=== PATIENT | female | born 1985 | race Caucasian/White ===

== ENCOUNTER 2017-11-17 07:30 | Inpatient (IN) | payer OTHER ==
[2017-11-17] MEDS ORDERED: Promethazine HCl 25 MG/ML VIAL IM PRN ×2 (10:25→13:30)
[2017-11-17] MEDS ORDERED: Ondansetron HCl/PF 4 MG/2 ML Vial IVP PRN ×4 (10:25→16:05)
--- NOTE | 2017-11-17 10:28 | PDOC.LDHP ---
Labor and Delivery H&P Chief complaint: scheduled section HPI: PT is a 32yo @ 37 weeks for scheduled RCS. Pt with BP noted 140/150/ 90s the last week, hx of preeclampsia in multiple pregnancies. Short interval , desires RCS. Current gestational age (weeks): 37 Due date: 12/08/17 Dating criteria: last menstrual period, second trimester ultrasound Grav: 6 Para: 5 OB History Details: x 4, CS for breech x 1 Current complications: gestational hypertension Abnormal US findings: No Current medications: pre-cecilia vitamins Previous surgical history: low tranverse CS Allergies/Adverse Reactions: Allergies Allergy/AdvReac Type Severity Reaction Status Date / Time No Known Allergies Allergy Verified 12/13/16 07:36 Social history: tobacco use (6 cig/day) - Physical Exam Vital signs reviewed and normal: yes General: resting, breathing through contractions Lungs: nonlabored breathing Extremeties: trace edema FHT: category 1 - OB Labs Blood type: A RH: positive Antibody Screen: negative HIV: negative RPR: negative HEPSAg: negative 1 hour GCT: unknown (not done) GBS: unknown (collected Mon) Rubella: immune - Assessment L&D Assessment: scheduled repeat section - Plan Plan: admit to L&D, informed consent obtained, anesthesia consult for pain management -: A/P: 32yo prev CS, declines NICOLETTE and short interval w delivery indicated for GHTN. TO OR>
[2017-11-17] MEDS ORDERED: CEFAZOLIN/Water 2 GM/20 ML SYRINGE SLOW IVP SCH (10:30)
[2017-11-17] MEDS ORDERED: Bicitra 30 ML UDCUP PO SCH (10:30)
[2017-11-17 10:37] VITALS: BMI 36.0
[2017-11-17] MEDS: Lactated Ringer's 1,000 ML IV SCH ×2 (11:00→23:53)
[2017-11-17] MEDS ORDERED: Ondansetron HCl/PF 4 MG/2 ML Vial ONE (11:34)
[2017-11-17] MEDS ORDERED: Oxytocin 10 UNITS/ML VIAL ONE ×2 (11:34→11:37)
[2017-11-17] MEDS ORDERED: Morphine PF 1 MG/ML SYR ONE (11:34)
[2017-11-17 11:36] LABS: Hemoglobin 12.4 g/dL (12.0-16.0); Mean Corpuscular HGB CONC 33.6 g/dL (32.0-36.0); Mean Corpuscular Hemoglobin 31.8 pg (27.0-31.0); Mean Corpuscular Volume 94.7 fl (81.0-99.0); Mean Platelet Volume 8.9 fL (7.4-10.4); Platelet Count 200 thou/uL (130-400); RBC Distribution Width 12.5 % (11.5-14.5); White Blood Cell (WBC) Count 10.9 thou/uL (4.8-10.8)
[2017-11-17] MEDS ORDERED: ePHEDrine/0.9% NaCl/PF SYRINGE 50 mg/10 ml ONE ×2 (11:49→12:08)
[2017-11-17] MEDS ORDERED: Ketorolac Tromethamine 30 MG/ML VIAL ONE ×2 (12:08→13:04)
[2017-11-17 12:23] LABS: HBSAg Index 0.13 S/CO (0-0.99); Hep B Surf Ag Non-Reactive S/CO (NonReactive)
[2017-11-17 12:24] LABS: Syphilis Antibody Nonreactive (Nonreactive); Syphilis Antibody Index 0.03 S/CO (<1.00 Non-Reactive)
[2017-11-17] MEDS ORDERED: HYDROmorphone 2 MG/ML VIAL SLOW IVP PRN (13:13)
[2017-11-17] MEDS ORDERED: Ketorolac Tromethamine 30 MG/ML VIAL IVP SCH (13:15)
--- NOTE | 2017-11-17 13:19 | PDOC.OPDEL ---
OB Operative/Delivery Note Delivery Dr/Surgeon: Jorge Assist: Charo Pre-Delivery Diagnosis: scheduled section Procedure/Post Delivery Dx: repeat low transverse CS Weeks gestation: 37 Anesthesia: spinal - Findings A Sex: female Weight: 6 lb 10 oz - 1 min: 8 - 5 min: 9 - Additional Findings/Plan Placenta delivered: manual removal findings: low transverse hysterotomy without extension, normal uterus, normal tubes, normal ovaries Estimated blood loss: 600ml Post delivery plan: routine recovery
[2017-11-17] MEDS ORDERED: Communication Order-Pharmacy FS SCH (13:30)
[2017-11-17] MEDS ORDERED: Promethazine HCl 25 MG SUPP PR PRN (13:30)
[2017-11-17] MEDS ORDERED: Naloxone HCl 0.4 mg/ml Vial IVP PRN ×2 (13:30)
[2017-11-17] MEDS ORDERED: Eucerin (Mineral Oil/Petrolatum,White) 30 gm Jar TOP PRN (13:30)
[2017-11-17] MEDS ORDERED: Naloxone HCl 0.4 mg/ml Vial IV PRN (13:30)
[2017-11-17] MEDS ORDERED: diphenhydrAMINE 50 MG/ML VIAL IVP PRN (13:30)
[2017-11-17] MEDS ORDERED: Meperidine HCl/PF 25 MG/ML VIAL ONE ×2 (13:59→14:26)
[2017-11-17] MEDS: Meperidine HCl/PF 25 MG/ML VIAL SLOW IVP PRN ×2 (14:02→14:33)
[2017-11-17] MEDS ORDERED: Morphine 5 MG/ML SYRINGE SLOW IVP PRN ×3 (15:04→17:34)
[2017-11-17] MEDS ORDERED: diphenhydrAMINE 25 MG CAP PO PRN (16:05)
[2017-11-17] MEDS ORDERED: Bisacodyl 10 MG SUPP PR PRN (16:05)
[2017-11-17] MEDS ORDERED: Adacel (T-DAP) 0.5 ML VIAL IM ONE (16:05)
[2017-11-17] MEDS ORDERED: LR w/ Pitocin 40 units/1000 ML BAG IV SCH (16:05)
[2017-11-17] MEDS ORDERED: Simethicone Chewable 80 MG TAB PO PRN (16:05)
[2017-11-17] MEDS ORDERED: Lanolin Ointment 7 GM TUBE TOP PRN (16:05)
--- NOTE | 2017-11-17 17:38 | OP ---
DATE OF PROCEDURE: 11/17/2017 PREOPERATIVE DIAGNOSES: 1. G6, P5 at 37 weeks. 2. Gestational hypertension. 3. Planned repeat section. POSTOPERATIVE DIAGNOSES: 1. G6, P5 at 37 weeks. 2. Gestational hypertension. 3. Planned repeat section. PROCEDURE PERFORMED: Repeat low transverse section. SURGEON: Manny Patel D.O. COMMISSION SALES ASSOCIATE: Linsday Mancilla M.D. COMPLICATIONS: None. ESTIMATED BLOOD LOSS: 600 mL INTRAOPERATIVE FINDINGS: 1. Low transverse hysterotomy without extension, normal appearing uterus, tubes, and ovaries bilater ally. 2. Vigorous female infant, Apgars 8 and 9, weight 6 pounds 10 ounces, to nursery. 3. Surgical sites hemostatic. PROCEDURE DETAILS: The patient was taken back to the OR with IV fluids running. Once she was in the OR, spinal anesthesia was obtained and the patient was placed in dorsal supine position with a left lateral tilt. Allred catheter was placed using sterile technique. SCDs were placed and initiated on the bilateral lower extremities. The abdomen was then prepped and draped in normal fashion for magalis otilia section. Surgeons were scrubbed in. The anesthesia was tested and found to be adequate. A Pfan nenstiel skin incision was made with the scalpel. Skin incision was carried down through the subcuta neous tissue to the fascia. Once the fascia was reached, it was incised in the midline and extended superior laterally using curved Briggs scissors. Henrique clamps were placed on the superior border of t he fascia, which was then sharply and bluntly dissected off the rectus abdominis muscles in both caud ad and cephalad directions allowing adequate space for delivery of the . The muscles were blun tly in the midline. The peritoneum was bluntly entered and stretched laterally. An Jeff O retractor was placed into the peritoneal cavity for retraction, visualization and protection of th e wound. A bladder flap was created using Metzenbaum scissors and the bladder was directed away from the planned hysterotomy site. Hysterotomy was then made with the scalpel. The uterus was bluntly e ntered and stretched with the Venegas maneuver. The amniotic sac was intact and ruptured with an Allis clamp with clear fluid noted. It was then delivered through the hysterotomy in the vertex position f ollowed by the body. Nose and mouth were suctioned. The cord was doubly clamped and cut. The infan t was handed off to special care nurses in attendance. Cord blood was collected. The placenta was d elivered. The uterus was exteriorized, massaged to firm, and cleared of clot and debris. Uterus was then returned to the abdominal cavity. Hysterotomy was closed in 2 layers with a second imbricating layer using Monocryl suture in a running lock fashion with hemostasis of the uterus noted. The hyst erotomy and pericolic gutters were irrigated and suctioned dry. The hysterotomy was inspected again and noted to be hemostatic. The Jeff O retractor was removed from the abdominal cavity. The fasci a and rectus muscles were inspected with no areas of bleeding noted. The fascia was reapproximated w ith PDS suture from corner to corner and tied separately in the midline. Subcutaneous tissue was the n irrigated. Subcutaneous tissue was reapproximated with plain gut suture. The skin was closed with 4-0 Monocryl and dressed with Dermabond dressing. The uterus was massaged again and noted to be fir m. The patient was clean, dry, and taken to recovery room in good condition.
[2017-11-17] MEDS: Acetaminophen 1,000 MG in Premix Bag 1 BAG IVPB PRN (17:50)
[2017-11-17] MEDS: Ketorolac Tromethamine 30 MG/ML VIAL IVP PRN (22:09)
[2017-11-17] MEDS: Docusate Calcium (SURFAK) 240 MG CAP PO SCH (22:09)
[2017-11-18] MEDS ORDERED: Meperidine HCl/PF 25 MG/ML VIAL IM PRN (01:30)
[2017-11-18] MEDS: Acetaminophen 1,000 MG in Premix Bag 1 BAG IVPB PRN (02:17)
[2017-11-18] MEDS: Ketorolac Tromethamine 30 MG/ML VIAL IVP PRN (04:51)
[2017-11-18] MEDS: Ferrous Sulfate 325 MG TAB PO SCH ×3 (05:12→21:31)
[2017-11-18 05:13] LABS: Hemoglobin 11.4 g/dL (12.0-16.0); Mean Corpuscular HGB CONC 33.3 g/dL (32.0-36.0); Mean Corpuscular Hemoglobin 31.8 pg (27.0-31.0); Mean Corpuscular Volume 95.6 fl (81.0-99.0); Mean Platelet Volume 7.9 fL (7.4-10.4); Platelet Count 226 thou/uL (130-400); RBC Distribution Width 12.8 % (11.5-14.5); Red Blood Cell (RBC) Count 3.58 mill/uL (4.20-5.40); White Blood Cell (WBC) Count 8.7 thou/uL (4.8-10.8)
--- NOTE | 2017-11-18 07:59 | PDOC.PP ---
Post Progress Note Post Day #: 1 Subjective: Doing well. Pain well controlled. Allred removed. Ambulated to bathroom. PO intake tolerated: yes Flatus: yes Ambulation: yes Vital Signs (12 hours) Temp Pulse Resp BP BP 11/18/17 04:00 97.8 F 67 20 114/70 11/18/17 02:00 20 11/18/17 00:00 98.7 F 72 18 114/60 11/17/17 22:00 18 11/17/17 20:00 98.2 F 67 18 114/57 L Weight Weight 230 lb - Physical Examination General: NAD Respiratory: non-labored breathing Abdominal: lochia (normal), no distention, appropriately TTP Fundus firm & at: U-2 Skin: CS incision dry & intact, no rash Neurological: no gross focal deficits Psychiatric: A&Ox3, normal affect Result Diagrams: 11/18/17 04:58 Additional Labs: Post Labs Blood Type A POSITIVE 11/17/17 11:02 Hep Bs Antigen Non-Reactive S/CO (NonReactive) 11/17/17 11:02 (1) Delivery by section for breech presentation Code(s): O32.1XX0 - MATERNAL CARE FOR BREECH PRESENTATION, UNSP Status: Acute - Assessment/Plan Doing well this morning. Continue with routine postop care.
[2017-11-18] MEDS: Docusate Calcium (SURFAK) 240 MG CAP PO SCH ×2 (10:09→21:29)
[2017-11-18] MEDS: Prenatal Vitamin 1 TAB PO SCH (10:09)
[2017-11-18] MEDS: HYDROcodone/Acetaminophen 5/325 mg Tablet PO PRN ×3 (10:12→19:35)
[2017-11-18] MEDS: Ibuprofen 800 MG TAB PO SCH ×2 (14:15→21:29)
[2017-11-19] MEDS: HYDROcodone/Acetaminophen 5/325 mg Tablet PO PRN ×3 (00:24→11:31)
[2017-11-19] MEDS: Ibuprofen 800 MG TAB PO SCH ×2 (06:02→13:48)
[2017-11-19] MEDS: Docusate Calcium (SURFAK) 240 MG CAP PO SCH (08:50)
[2017-11-19] MEDS: Prenatal Vitamin 1 TAB PO SCH (08:50)
[2017-11-19 08:52] VITALS: BP 138/74; TEMP 98.6
[2017-11-19] MEDS: Ferrous Sulfate 325 MG TAB PO SCH (08:52)
--- NOTE | 2017-11-19 10:32 | DIS ---
DATE OF SERVICE: 11/19/2017 DATE OF ADMISSION: 11/17/2017 DATE OF DISCHARGE: 11/19/2017 ADMISSION DIAGNOSES: 1. Scheduled section at 37 weeks, for history of prior patient desires repeat. 2. Borderline blood pressures with history of preeclampsia in her other pregnancies. DISCHARGE DIAGNOSIS: Postoperative section. HOSPITAL COURSE: At the time of presentation, Ms. Flores is a 32-year-old female, who presents for a repeat scheduled section. She had some mild blood pressure elevation. She had an uncomplic ated operative and postoperative course and was normotensive. On the day of discharge, temperature w as 98.6, pulse 68, respiratory rate 18, blood pressure was 138/74. The patient is tolerating p.o., h as good pain control, and desires discharge home today on postoperative day #2. Her abdomen is soft, nontender, nondistended. No rebound, no guarding. Incision is clean, dry, and intact. The patient will be discharged home today, postoperative day #2, with instructions to follow up with her primary [employer] in 1-2 weeks. Routine postoperative instructions were given. The patient was discharged darío e on [place] and Motrin.
== END 2017-11-19 14:30 | disposition home or self-care (01) | DRG 766 ==
LOC: L&D 09:55 → 3SW 16:49
PROVIDERS: ADMIT Obstetrics & Gynecology; ATTEND Obstetrics & Gynecology
PROC: 10D00Z1 Extraction of Products of Conception, Low, Open Approach (ICD-10-PCS; principal; 2017-11-17)
PROC: 10907ZC Drainage of Amniotic Fluid, Therapeutic from Products of Conception, Via Natural or Artificial Opening (ICD-10-PCS; 2017-11-17)
DX: O13.4 Gestational [pregnancy-induced] hypertension without significant proteinuria, complicating childbirth (principal); O32.1XX0 Maternal care for breech presentation, not applicable or unspecified; O34.211 Maternal care for low transverse scar from previous cesarean delivery; Z37.0 Single live birth; Z3A.37 37 weeks gestation of pregnancy
CPT/HCPCS: 36415; 51702; 85027; 86780; 86850; 86900; 86901; 87340; 90715; J2270; J0131; J1885; J2175; J2274; J2405; J2590

== ENCOUNTER 2018-06-24 18:19 | Emergency (ER) | payer SELFPAY ==
[2018-06-24 19:07] LABS: Bilirubin Negative (Negative); Blood, Urine Small (Negative); Clarity CLEAR (Clear); Glucose, Urine (Dipstick) Negative (Negative); Leukocyte Negative (Negative); Nitrite Negative (Negative); Protein, Urine (Dipstick) Negative (Neg-Trace); Specific Gravity, Urine 1.023 (1.002-1.036); Urobilinogen 0.2 mg/dL (0.2-1.0); pH, Urine 5.5 (5.0-9.0)
[2018-06-24 19:10] LABS: Bacteria/HPF None Seen HPF (None Seen); Hyaline Casts/LPF 0-3 HYALINE CAST LPF (0-3 Hyaline); Squamous Epithelial 0-3 HPF (0-3); WBC/HPF 0-3 HPF (0-3)
[2018-06-24 19:11] LABS: #Basophils 0.1 thou/uL (0.0-0.2); #Eosinphils 0.4 thou/uL (0.0-0.7); #Lymphocytes 2.1 thou/uL (1.20-3.40); #Monocytes 0.3 thou/uL (0.11-0.59); #Neutrophils 5.9 thou/uL (1.40-6.50); %Basophils 0.8 % (0.0-1.0); %Eosinophils 4.4 % (0.0-10.0); %Lymphocytes 23.9 % (21.0-51.0); %Monocytes 3.8 % (0.0-10.0); %Neutrophils 67.1 % (42.0-75.0); Hemoglobin 14.9 g/dL (12.0-16.0); Mean Corpuscular HGB CONC 35.2 g/dL (32.0-36.0); Mean Corpuscular Hemoglobin 32.4 pg (27.0-31.0); Mean Corpuscular Volume 91.9 fL (78.0-98.0); Mean Platelet Volume 6.9 fL (7.4-10.4); Platelet Count 273 thou/uL (130-400); RBC Distribution Width 11.8 % (11.5-14.5); Red Blood Cell (RBC) Count 4.62 mill/uL (4.20-5.40); White Blood Cell (WBC) Count 8.9 thou/uL (4.8-10.8)
[2018-06-24 19:14] LABS: Pregnancy Test - Urine (BHCG) Negative (Negative); Pregu Control Background? CLEAR/WHITE (CLR/WHITE); Pregu Control Bar Appear? YES (CONTROL BAR); Specific Gravity 1.023 (1.002-1.036)
[2018-06-24 19:28] LABS: RBC/HPF 0-3 HPF (0-3)
[2018-06-24 19:31] LABS: ALT (SGPT) 25 U/L (8-55); AST (SGOT) 17 U/L (5-34); Albumin 4.4 g/dL (3.5-5.0); Alkaline Phosphatase 56 U/L (40-150); Anion Gap 12 mmol/L (10-20); BUN (Urea Nitrogen) 17 mg/dL (7.0-18.7); Bilirubin, Total 0.2 mg/dL (0.2-1.2); Calc. Creatinine Clearance 0 mL/min (70-130); Calcium 9.3 mg/dL (7.8-10.44); Carbon Dioxide 23 mmol/L (22-29); Chloride 109 mmol/L (98-107); Estimated GFR-MDRD 71; Globulin 3.2 g/dL (2.4-3.5); Glucose 122 mg/dL (70-105); Potassium 3.6 mmol/L (3.5-5.1); Protein, Total 7.6 g/dL (6.0-8.3); Sodium 140 mmol/L (136-145)
[2018-06-24] MEDS ORDERED: Ketorolac Tromethamine 30 MG/ML VIAL ONE (23:37)
--- NOTE | 2018-06-24 23:50 | ULT ---
PELVIC ULTRASOUND: 06/24/2018 HISTORY: Pelvic pain for three months, since Essure placement. FINDINGS: The uterus has a normal sonographic appearance and measures 8.9 cm x 5.2 cm x 6.3 cm, at the uterine fundus, bilaterally, likely related to the patient's history of placement of prior Essure devices. T he endometrial stripe thickness is within normal limits, measuring 0.5 cm. The right ovary measures 3.5 cm x 1.8 cm x 3.2 cm. There is a 2.7 cm anechoic cystic structure seen within the right ovary, demonstrating characteristics most compatible with a right ovarian cyst. The left ovary demonstrates a normal sonographic appearance and measures 2.8 cm x 1.4 cm x 2.8 cm. Doppler evaluation of each ovary with spectral analysis and color-flow evaluation demonstrates arteri al and venous flow in each ovary. No free fluid is seen in the cul-de-sac. IMPRESSION: 1. Small right ovarian cyst. 2. Normal appearing uterus and bilateral ovaries. 3. Curvilinear echogenic structures on either side of the uterine fundus, likely related to the sujit ent's known Essure devices. POS: YAZ
== END 2018-06-25 00:15 | disposition home or self-care (01) ==
LOC: ERS 18:19
DX: N83.201 Unspecified ovarian cyst, right side (principal); F17.210 Nicotine dependence, cigarettes, uncomplicated
CPT/HCPCS: 36415; 76856; 80053; 81003; 81015; 81025; 85025; 96372; J1885

== ENCOUNTER 2022-05-07 18:44 | Emergency (ER) | payer SELFPAY ==
[2022-05-07] MEDS ORDERED: Ondansetron PF 4 MG/2 ML Vial ONE (19:09)
[2022-05-07] MEDS ORDERED: Morphine 4 MG/ML VIAL ONE (19:09)
[2022-05-07] MEDS ORDERED: Ketorolac Tromethamine 30 MG/ML VIAL ONE (19:09)
[2022-05-07] MEDS ORDERED: Midazolam HCl 2 mg/2 ml Vial ONE (19:09)
[2022-05-07 19:10] LABS: #Basophils 0.1 thou/uL (0.0-0.2); #Eosinphils 0.3 thou/uL (0.0-0.7); #Lymphocytes 2.9 thou/uL (1.20-3.40); #Monocytes 0.7 thou/uL (0.11-0.59); #Neutrophils 6.7 thou/uL (1.40-6.50); %Basophils 0.6 % (0.0-1.0); %Eosinophils 2.7 % (0.0-10.0); %Monocytes 6.8 % (0.0-10.0); %Neutrophils 62.8 % (42.0-75.0); Hemoglobin 14.8 g/dL (12.0-16.0); Mean Corpuscular HGB CONC 34.1 g/dL (32.0-36.0); Mean Corpuscular Volume 93.7 fL (78.0-98.0); Mean Platelet Volume 7.9 fL (7.4-10.4); Platelet Count 270 thou/uL (130-400); RBC Distribution Width 12.3 % (11.5-14.5); Red Blood Cell (RBC) Count 4.62 mill/uL (4.20-5.40); White Blood Cell (WBC) Count 10.6 thou/uL (4.8-10.8)
[2022-05-07 19:31] LABS: ALT (SGPT) 24 U/L (8-55); AST (SGOT) 19 U/L (5-34); Albumin 4.3 g/dL (3.5-5.0); Alkaline Phosphatase 63 U/L (40-110); Anion Gap 15 mmol/L (10-20); BUN (Urea Nitrogen) 14 mg/dL (7.0-18.7); Bilirubin, Total Less than 0.2 mg/dL (0.2-1.2); Calc. Creatinine Clearance 0 mL/min (70-130); Calcium 10.4 mg/dL (7.8-10.44); Carbon Dioxide 25 mmol/L (22-29); Chloride 106 mmol/L (98-107); Estimated GFR 98; Globulin 3.7 g/dL (2.4-3.5); Glucose 104 mg/dL (70-105); Lipase 50 U/L (8-78); Sodium 142 mmol/L (136-145)
[2022-05-07] MEDS ORDERED: HYDROmorphone 0.5 MG/0.5 ML SYRINGE ONE ×4 (20:22→23:06)
[2022-05-07 22:27] LABS: Bilirubin Negative (Negative); Blood, Urine Negative (Negative); Clarity Turbid (Clear); Glucose, Urine (Dipstick) Normal (Negative); Ketone, Urine Negative (Negative); Leukocyte Negative Leu/uL (Negative); Nitrite Negative (Negative); Protein, Urine (Dipstick) Negative (Neg-Trace); Specific Gravity, Urine 1.021 (1.002-1.036); Urobilinogen Normal mg/dL (Less than 2)
[2022-05-07 22:32] LABS: Pregnancy Test - Urine (BHCG) Negative (Negative); Pregu Control Background? CLEAR/WHITE (CLR/WHITE); Pregu Control Bar Appear? YES (CONTROL BAR); Specific Gravity 1.021 (1.002-1.036)
[2022-05-07] MEDS ORDERED: HYDROcodone/Acetaminophen 10/325 mg Tablet ONE (23:05)
== END 2022-05-07 23:29 | disposition home or self-care (01) ==
LOC: ERS 18:44
DX: N20.1 Calculus of ureter (principal); F17.210 Nicotine dependence, cigarettes, uncomplicated
CPT/HCPCS: 36415; 74176; 80053; 81003; 81025; 83690; 85025; 87086; 96374; 96375; 96376; J1170; J1885; J2250; J2270; J2405